=== PATIENT | female | born 1980 | race Caucasian/White ===

== ENCOUNTER 2020-11-26 06:06 | Day surgery (SDC) | payer OTHER ==
[~2020-11-26] VITALS: Ht 165.1 cm; Wt 79.4 kg
--- NOTE | ~2020-11-26 | O ---
[address] [address] OPERATIVE REPORT Name: LATONYA CAM Room #: [facility] Ene#: [id number] Admission: 11/26/20 Attend Phys: Harjit Junior MD Discharge: 11/26/20 Date of : 80 Report #: [id number] THIS REPORT FOR: cc: Thania Schuler MD, Constance M. MD McCabe,Harjit Kramer MD ~ DATE OF SERVICE: 11/26/2020 SERVICE: Orthopedics. FACILITY: [facility]. SURGEON: Harjit Junior MD MACHINE FIXER: Elle Bustillo NP. INDICATIONS FOR MACHINE FIXER: Extremity positioning, suture management, arthroscope management, assistance with repair. PREOPERATIVE DIAGNOSES: 1. Left hip pain. 2. Left hip femoral acetabular impingement. 3. Left hip labral tear. 4. Left hip chondromalacia. POSTOPERATIVE DIAGNOSES: 1. Left hip pain. 2. Left hip femoral acetabular impingement. 3. Left hip labral tear. 4. Left hip chondromalacia. 5. Left hip loose body. PROCEDURES: 1. Left hip arthroscopic labral repair. 2. Left hip arthroscopic Cam osteochondroplasty. 3. Left hip arthroscopic subspine decompression. 4. Left hip arthroscopic chondroplasty. 5. Left hip arthroscopic loose body removal. COMPLICATIONS: None. DRAINS: None. SPECIMENS: Loose body, which was discarded. FINDINGS: [address] [address] OPERATIVE REPORT Name: LATONYA CAM Room #: [facility].#: [id number] Admission: 11/26/20 Attend Phys: Harjit Junior MD Discharge: 11/26/20 Date of : 80 Report #: [id number] 1. Keisha Grimaldo suture anchor x4 for labral repair. 2. Grade II and III chondromalacia of the medial aspect of the femoral head as well as the medial aspect of the acetabulum with some mild chondromalacia extending anteriorly on the acetabular side with partial thickness chondral fraying, treated with chondroplasty. 3. Large Cam deformity, treated with Cam osteochondroplasty, maximal alpha angle preoperatively was approximately 65 degrees. 4. Small spherical loose body was found in the anterior capsule and removed and discarded. 5. Capsular repair with #2 Vicryl x5. HISTORY: The patient is a 40-year-old female with history of persistent progressive left hip pain that was worsening over the course of several years. She has tried extensive conservative measures including rest, activity modification, physical therapy, oral medicines, intra-articular injection and modalities. She had temporary pain relief with intra-articular injection, but did not have any sustained relief with conservative measures and wished to have definitive surgical treatment. Preoperative x-rays were consistent with femoral acetabular impingement. She had well-maintained joint spaces with Ton[place] grade 1 and had an alpha angle approximately 60-65 degrees, indicating Cam impingement. She also has a small crossover sign on AP pelvis secondary to a prominent anterior inferior iliac spine causing extraarticular subspine impingement. She had an MRI, which showed a labral tear and did have some medial articular cartilage wear. There was no evidence of subchondral marrow edema. I had a conversation with her specifically about the cartilage condition and we decided together that given her age and her significant pain that arthroscopic approach was appropriate, especially in the context of normal joint space on the weightbearing x-ray. Risks, benefits, alternatives and indications for surgery discussed with her in detail. Risks include but not limited to pain, bleeding, infection, injuring nerves or blood vessels, persistent pain despite surgical intervention, failure of any repairs, progression of preexisting chondral injury, stiffness, need for further surgery as well as complications related to anesthesia such as stroke, heart attack, pulmonary complications, thromboembolic disease and . Despite these risks, she wished to proceed. DESCRIPTION OF PROCEDURE: After left lower extremity was correctly identified in the preoperative holding area as the operative extremity, the patient underwent regional nerve block. She was taken to the operating room. General anesthesia was induced without complications. She was padded appropriately. Prophylactic antibiotics were administered in appropriate time. C-arm was used to identify the extent of the Cam deformity and the proximal femoral head and neck junction was mapped out under fluoroscopy. Left hip was then prepped and draped in sterile fashion. Timeout procedure performed. Traction was applied. Standard anterolateral viewing portal was established followed by anteromedial [address] [address] OPERATIVE REPORT Name: LATONYA CAM Room #: [place] [facility]#: [id number] Admission: 11/26/20 Attend Phys: Harjit Junior MD Discharge: 11/26/20 Date of : 80 Report #: [id number] working portal. There was synovitis and capsular erythema present, both of which would be indications for continuous passive motion machine usage postoperatively in order to reduce the risk of scarring and adhesions that these can be reasons for reoperation in this patient population. Transverse capsulotomy was performed. The labrum was noted to travel distally with the femoral head under traction, indicating that this was a full-thickness labral detachment anteriorly. The shaver was used to reflect the capsule off the dorsal side of the labrum and obtained access to the acetabular side of the bone. The probe was used to assess the reducibility of the labrum and then proceeded with the bony work. There was a prominent anterior inferior iliac spine that was palpable arthroscopically and visible on fluoroscopy as well as direct arthroscopic visualization. The capsule was dissected around the base of the anterior inferior iliac spine with the cautery and shaver and then a bur was used to perform a subspine decompression in standard fashion. Bur was used to abrade the acetabular rim to create a fresh surface for labral repair and we proceeded with labral repair. First anchor was placed most medially and the cerclage suture was used to draw the labrum back to its anatomic position and reduced into the acetabular rim. We then proceeded to add two additional anchors towards laterally and at this point, the labrum was reduced, but there was still some mobility between the second and third anchors, so I went back and placed a fourth anchor between the second and third. The lateral anchors were placed through the anterolateral portal with a viewing portal anteromedially. The shaver was used to perform a thorough chondroplasty. She required chondroplasty of the anterior articular cartilage on the acetabulum as well as a deeper near the pulvinar region of the acetabulum. There was no loose articular cartilage on the femoral head, so she did not require any chondroplasty of the femoral head. The femoral head actually looked healthier on the weightbearing portion than I anticipated from the MRI. She does have chondromalacia present in a stellate pattern of the medial femoral head that articulates with the polar essentially. The loose body that had been identified in the anterior capsule was then addressed at this point. This loose body was first noted in the medial aspect of the anterior capsule just on the acetabulum. In this case, it was medial to the base of the anterior inferior iliac spine and was released during the soft tissue dissection until the back of the hip. Based on the location, I was unable to retrieve it from the anteromedial or anterolateral portals and so I established posterolateral portal and then placed a grasping device in a percutaneous fashion through this. We removed the loose body without difficulty. This portal was then used to perform a debridement and chondroplasty of the pulvinar and the medial acetabulum. At this point, the repair was completed and acetabular side of work was done. Traction was let down. Hip was flexed up, attention was turned towards the peripheral compartment where there was a very large dense Cam deformity. Transverse capsulotomy was extended [address] [address] OPERATIVE REPORT Name: LATONYA CAM Room #: [place] [place]ne#: [id number] Admission: 11/26/20 Attend Phys: Harjit Junior MD Discharge: 11/26/20 Date of : 80 Report #: [id number] down the neck in a T fashion allowing access to the entire Cam deformity and them the bur was used to perform a Cam osteoplasty in standard fashion. I removed the instruments, brought C-arm in, identified some additional bone that needed to be resected, specifically distal and lateral. So, the instruments were placed back in the hip and the Cam osteoplasty was completed. Bony debris was lavaged out the hip. The instruments were removed. Final x-rays were taken to confirm adequate resection had been achieved. Instruments were placed back into the hip once more and then the T-shaped capsulotomy was closed with a total of five #2 Vicryl sutures. Instruments were removed. Portal sites were closed. Sterile dressing was applied. The patient was awakened from anesthesia and taken to recovery room in stable condition. By: [id number] Harjit Junior MD /nt
[~2020-11-26 06:06] MED LIST: LO LOESTRIN FE1 EACH PO
[2020-11-26 06:49] VITALS: BP 134/85
[2020-11-26 11:32] VITALS: BP 134/85
== END 2020-11-26 13:20 | disposition home or self-care (01) ==
LOC: OR 06:06 → TBA 06:07 → OR 10:19
PROVIDERS: ATTEND Orthopaedic Surgery Sports Medicine
DX: M25.552 Pain in left hip (principal); S73.102A Unspecified sprain of left hip, initial encounter; M94.252 Chondromalacia, left hip; M25.852 Other specified joint disorders, left hip; M24.052 Loose body in left hip; Z98.890 Other specified postprocedural states; Z79.899 Other long term (current) drug therapy; X58.XXXA Exposure to other specified factors, initial encounter; Y92.89 Other specified places as the place of occurrence of the external cause; Y99.8 Other external cause status; Y93.89 Activity, other specified
CPT/HCPCS: 50010; 50101; 50386; 51320; 51538; 52001; 52282; 52304; 52313; 56524; 56527; 57092; 57103; 58274; 58557; 58558; 58559; 58561; 58562; 58563; 58564; 58608; 58638; 62110; 62900; 64039; 70005